=== PATIENT | male | born 1990 | race Asian ===

== ENCOUNTER 2021-11-01 00:09 | Emergency (ER) | payer OTHER ==
[~2021-11-01] VITALS: Ht 180.3 cm; Wt 108.9 kg
[2021-11-01 01:37] VITALS: BP 146/82; TEMP 98.2
== END 2021-11-01 01:37 | disposition home or self-care (01) ==
LOC: ED 00:09
DX: K04.7 Periapical abscess without sinus (principal)
CPT/HCPCS: 96372; 99283; J0696; J1885

== ENCOUNTER 2023-04-09 16:55 | Emergency (ER) | payer OTHER ==
[~2023-04-09] VITALS: Ht 177.8 cm; Wt 120.2 kg
[2023-04-09 17:00] VITALS: BP 149/95; TEMP 97.1
== END 2023-04-09 18:49 | disposition home or self-care (01) ==
LOC: ED 16:55
DX: S93.402A Sprain of unspecified ligament of left ankle, initial encounter (principal); X58.XXXA Exposure to other specified factors, initial encounter
CPT/HCPCS: 96372; 99283; J1100; J1885